=== PATIENT | male | born 1990 | race Caucasian/White ===

== ENCOUNTER 2017-02-11 15:54 | Inpatient (IN) | payer BC ==
[~2017-02-11] VITALS: Ht 175.3 cm; Wt 59.9 kg
[2017-02-11] MEDS ORDERED: IV NORMAL SALINE 1000ML BAG 1,000 ML IV ONE ×2 (16:15→20:30)
[2017-02-11 16:29] LABS: BASO # 0.1 x10^3/uL (0.0-0.2); BASO % 1 % (0-3); EOS % 1 % (0-3); HEMATOCRIT 43.2 % (39.0-53.0); HEMOGLOBIN 14.3 g/dL (13.0-17.5); LYMPH # 1.5 x10^3/uL (1.0-4.8); LYMPH % 22 % (24-48); MEAN CORPUSCULAR HEMOGLOBIN 28 pg (25-35); MEAN CORPUSCULAR HGB CONC 33 g/dL (31-37); MEAN CORPUSCULAR VOLUME 85 fL (79-100); MONO % 8 % (0-9); NEUT % 68 % (31-73); PLATELET COUNT 249 x10^3/uL (140-400); RED BLOOD COUNT 5.07 x10^6/uL (4.30-5.70); WHITE BLOOD COUNT 7.1 x10^3/uL (4.0-11.0)
[2017-02-11 16:32] LABS: BILIRUBIN,URINE SMALL (NEG); GLUCOSE,URINE NEGATIVE (NEG); NITRITE,URINE NEGATIVE (NEG); PROTEIN,URINE NEGATIVE (NEG-TRACE)
--- NOTE | 2017-02-11 16:33 | RAD ---
AP portable chest radiograph 02/11/2017 Clinical History: Unresponsive. Post intubation. An AP portable erect digital radiograph of the chest was obtained. No previous studies are available for comparison. An ET tube has been placed. The tip this tube overlies the trachea at the level of the clavicles. A NG tube has been placed. The tip of this tube is off this radiograph in the region of the body of the stomach. The cardiac and mediastinal silhouettes are within normal limits in size and configuration. No acute pulmonary infiltrate is seen. No pleural effusion or pneumothorax is noted. The osseous structures are grossly intact. Impression: 1. ET and NG tube position as outlined above. 2. No acute abnormality is seen.
[2017-02-11 16:42] LABS: BACTERIA,URINE FEW /HPF (0-FEW); RBC,URINE 0 /HPF (0-2); SQUAMOUS EPITHELIAL CELL,UR OCC /LPF
[2017-02-11 16:43] LABS: CALCIUM 8.4 mg/dL (8.5-10.1); CREATININE 1.1 mg/dL (0.7-1.3); GFR 81.6; POTASSIUM 3.6 mmol/L (3.5-5.1)
[2017-02-11 16:43] LABS: BARBITURATES NEG (NEG); BENZODIAZEPINES NEG (NEG); CANNABINOIDS POS (NEG); COCAINE NEG (NEG); METHADONE NEG (NEG); OPIATES NEG (NEG); PHENCYCLIDINE NEG (NEG)
[2017-02-11 16:52] LABS: ALBUMIN 4.3 g/dL (3.4-5.0); ALBUMIN/GLOBULIN RATIO 1.5 (1.0-1.7); TOTAL BILIRUBIN 0.4 mg/dL (0.2-1.0); TOTAL PROTEIN 7.2 g/dL (6.4-8.2)
[2017-02-11] MEDS ORDERED: PROPOFOL 10 MG/ML (50ML) VIAL. IV ONE (17:00)
[2017-02-11] MEDS ORDERED: PROPOFOL 50 ML IV ONE (17:01)
--- NOTE | 2017-02-11 17:20 | RAD ---
CT scan of the head without contrast 02/11/2017 Clinical history: Unresponsive. Technique: Unenhanced, contiguous, 5 mm axial sections were obtained through the head. One or more of the following individualized dose reduction techniques were utilized for this study: 1. Automated exposure control. 2. Adjustment of the mA and/or kV according to patient size. 3. Use of iterative reconstruction technique. Findings: The ventricles and sulci are within normal limits in size and configuration. No area of abnormal attenuation is involving the brain parenchyma. No extra-axial fluid collection is seen. No skull fracture is noted. A 9 mm mucous retention cyst is seen involving the right maxillary sinus. Moderate mucosal thickening is seen along the left maxillary sinus. Impression: No acute intracranial abnormality is seen. CT scan of the cervical spine without contrast 02/11/2017 Clinical history: Unresponsive. Possible neck injury. Technique: Unenhanced, contiguous, 0.625 mm axial sections were obtained through the cervical spine. 3 mm reconstructed sagittal, axial, and and coronal images were obtained. One or more of the following individualized dose reduction techniques were utilized for this study: 1. Automated exposure control. 2. Adjustment of the mA and/or kV according to patient size. 3. Use of iterative reconstruction technique. Findings: Sagittal and coronal reconstructed images demonstrate mild lateral curvature of the cervical spine convex to the right. There is slight straightening of the normal cervical lordosis. ET and NG tubes are noted in place. No fracture or subluxation of the cervical vertebrae is seen. No significant degenerative changes are noted. Impression: No fracture or subluxation of the cervical vertebra is seen.
[2017-02-11] MEDS ORDERED: fentaNYL PF VIAL 100 MCG/2 ML VIAL IV ONE (17:30)
[2017-02-11 17:31] LABS: PLT ESTIMATE ADEQUATE (ADEQUATE)
[2017-02-11] MEDS ORDERED: KETAMINE HCL 500 MG/10 ML VIAL. IV ONE ×2 (17:45→18:45)
[2017-02-11] MEDS ORDERED: MORPHINE SULFATE 4 MG/ML DISP.SYRIN. IV PRN (18:15)
[2017-02-11] MEDS ORDERED: ONDANSETRON PF 4 MG/2 ML VIAL. IV PRN (18:15)
[2017-02-11] MEDS ORDERED: ETOMIDATE 20 MG/10 ML VIAL. IV ONE (19:09)
[2017-02-11] MEDS ORDERED: ROCURONIUM 50 MG/5 ML VIAL. ONE (19:09)
--- NOTE | 2017-02-11 19:25 | PHYS DOC ---
Past Medical History Past Medical History: No Pertinent History Past Surgical History: No Surgical History Alcohol Use: None Drug Use: Marijuana Adult General Chief Complaint Chief Complaint: ALTERED MENTAL STATUS HPI HPI Patient is a 27 year old M who presents with unresponsive. Patient was found face down in the median of the road and a concern citizen called EMS. Patient came in unresponsive with a GCS of 3 not intubated. There is no overt signs of trauma. Vital signs stable for EMS. Pertinent exam findings: GCS of 3 Vertical nystagmus with 4 mm pupils bilaterally Heart was regular rate and rhythm without any murmurs Lungs were clear to auscultation bilaterally ED course: Patient was seen and evaluated upon arrival to emergency room, CBC, CMP, troponin, urine drug screen, CT scan of the head, chest x-ray were ordered After evaluating the patient in the recess bay the patient has a GCS of 3 therefore was intubated using 20 of etomidate and 70 of rocuronium with a size 8 -0 ET tube 1718: Patient is starting to wake up on the vent therefore bolus of propofol was provided 1736: A bolus of ketamine 140 mg was given to the patient who is now resting comfortably 1800: Discussed CC/HP/PMH with Dr. Huber and recommends admit [] Pertinent results: 1615: EKG shows normal sinus rhythm rate of [address] scan of the head and C-spine NAD Drug screen is positive for methamphetamines Chest x-ray NAD, ET tube and NG tube were in place MDM: After reviewing the chart, CC/HPI/PMH, physical exam, [lab results], [ radiological results], I do not believe the patient sustained an acute intracranial injury warranting emergent neurosurgical intervention. I believe the patient had a drug overdose that caused his unresponsiveness and will admit to the ICU for further evaluation and management. Review of Systems Review of Systems Able to obtain review of systems secondary to patient's clinical status Current Medications Current Medications Current Medications Medications (Trade) Dose Ordered Sig/[place] Start Time Stop Time Status Last Admin Dose Admin Fentanyl Citrate (Fentanyl 2ml Vial) 100 mcg 1X ONCE 02/11/17 17:30 02/11/17 17:31 DC 02/11/17 17:28 100 MCG Ketamine HCl 320 mg 1X ONCE 02/11/17 17:45 02/11/17 17:46 Cancel Propofol 50 ml @ As Directed STK-MED ONCE 02/11/17 17:01 6/12/17 17:02 DC Propofol (Diprivan) 500 mg 1X ONCE 02/11/17 17:00 02/11/17 17:01 DC 02/11/17 17:03 500 MG Sodium Chloride 1,000 ml @ 1,000 mls/hr 1X ONCE 02/11/17 16:15 02/11/17 17:14 DC 02/11/17 16:21 1,000 MLS/HR Allergies Allergies Allergies Coded Allergies Type Severity Reaction Last Updated Verified No Known Drug Allergies 01/07/16 No Physical Exam Physical Exam GEN.: Unresponsive HEENT: Head is normocephalic, atraumatic, vertical nystagmus with pupils 4 mm bilaterally NECK: Supple. LUNGS: CTAB. HEART: RRR, S1, S2 present. Peripheral pulses intact ABDOMEN: Soft, nontender. Positive bowel sounds. EXTREMITIES: Without any cyanosis. NEUROLOGIC: GCS=3 SKIN: No ulcerations Current Patient Data Vital Signs Vital Signs Date Time Temp Pulse Resp B/P (MAP) Pulse Ox O2 Delivery O2 Flow Rate FiO2 02/11/17 17:51 62 147/99 (115) 100 Ventilator 02/11/17 15:54 100.1 14 100.1 Lab Values Laboratory Tests Test 02/11/17 16:10 02/11/17 16:20 White Blood Count 7.1 x10^3/uL (4.0-11.0) Red Blood Count 5.07 x10^6/uL (4.30-5.70) Hemoglobin 14.3 g/dL (13.0-17.5) Hematocrit 43.2 % (39.0-53.0) Mean Corpuscular Volume 85 fL (79-100) Mean Corpuscular Hemoglobin 28 pg (25-35) Mean Corpuscular Hemoglobin Concent 33 g/dL (31-37) Red Cell Distribution Width 14.0 % (11.5-14.5) Platelet Count 249 x10^3/uL (140-400) Neutrophils (%) (Auto) 68 % (31-73) Lymphocytes (%) (Auto) 22 % (24-48) L Monocytes (%) (Auto) 8 % (0-9) Eosinophils (%) (Auto) 1 % (0-3) Basophils (%) (Auto) 1 % (0-3) Neutrophils # (Auto) 4.8 x10^3uL (1.8-7.7) Lymphocytes # (Auto) 1.5 x10^3/uL (1.0-4.8) Monocytes # (Auto) 0.6 x10^3/uL (0.0-1.1) Eosinophils # (Auto) 0.1 x10^3/uL (0.0-0.7) Basophils # (Auto) 0.1 x10^3/uL (0.0-0.2) Platelet Estimate Adequate (ADEQUATE) Platelet Clumps, EDTA Present Large Platelets Few Sodium Level 145 mmol/L (136-145) Potassium Level 3.6 mmol/L (3.5-5.1) Chloride Level 107 mmol/L (98-107) Carbon Dioxide Level 31 mmol/L (21-32) Anion Gap 7 (6-14) Blood Urea Nitrogen 8 mg/dL (8-26) Creatinine 1.1 mg/dL (0.7-1.3) Estimated GFR (Cockcroft-Gault) 81.6 BUN/Creatinine Ratio 7 (6-20) Glucose Level 109 mg/dL (70-99) H Lactic Acid Level 0.9 mmol/L (0.4-2.0) Calcium Level 8.4 mg/dL (8.5-10.1) L Total Bilirubin 0.4 mg/dL (0.2-1.0) Aspartate Amino Transferase (AST) 19 U/L (15-37) Alanine Aminotransferase (ALT) 18 U/L (16-63) Alkaline Phosphatase 42 U/L (46-116) L Troponin I Quantitative < 0.017 ng/mL (0.000-0.055) Total Protein 7.2 g/dL (6.4-8.2) Albumin 4.3 g/dL (3.4-5.0) Albumin/Globulin Ratio 1.5 (1.0-1.7) Ethyl Alcohol Level < 10 mg/dL (0-10) Urine Collection Type U cath Urine Color Elizabeth Urine Clarity Clear Urine pH 6.0 Urine Specific [place] >=1.030 Urine Protein Negative mg/dL (NEG-TRACE) Urine Glucose (UA) Negative mg/dL (NEG) Urine Ketones (Stick) Trace mg/dL (NEG) Urine Blood Negative (NEG) Urine Nitrite Negative (NEG) Urine Bilirubin Small (NEG) Urine Urobilinogen Dipstick 1.0 mg/dL (0.2 mg/dL) Urine Leukocyte Esterase Trace (NEG) Urine RBC 0 /HPF (0-2) Urine WBC 1-4 /HPF (0-4) Urine Squamous Epithelial Cells Occ /LPF Urine Amorphous Sediment Present /HPF Urine Bacteria Few /HPF (0-FEW) Urine Mucus Mod /LPF Urine Opiates Screen Neg (NEG) Urine Methadone Screen Neg (NEG) Urine Barbiturates Neg (NEG) Urine Phencyclidine Screen Neg (NEG) Urine Amphetamine/Methamphetamine Pos (NEG) Urine Benzodiazepines Screen Neg (NEG) Urine Cocaine Screen Neg (NEG) Urine Cannabinoids Screen Pos (NEG) Urine Ethyl Alcohol Neg (NEG) Laboratory Tests 02/11/17 16:10 Laboratory Tests 02/11/17 16:10 EKG EKG EKG shows normal sinus rhythm rate 79 no STEMI [] Radiology/Procedures Radiology/Procedures Chest x-ray NAD CT scan of the head and C-spine NAD [] Course & Med Decision Making Course & Med Decision Making Pertinent Labs and Imaging studies reviewed. (See chart for details) Critical care time was 35 minutes exclusive of procedures. [] Dragon Disclaimer Dragon Disclaimer This electronic medical record was generated, in whole or in part, using a voice recognition dictation system. Departure Departure Impression: Primary Impression: Unresponsiveness Additional Impression: Methamphetamine abuse Disposition: 09 ADMITTED INPATIENT Admitting Physician: Marisel Huber Condition: STABLE Referrals: NO PCP (PCP) Problem Qualifiers BASSAM MCINTOSH DO Feb 11, 2017 19:25
[2017-02-11] MEDS ORDERED: PROPOFOL 100 ML IV ONE ×2 (19:42→23:45)
[2017-02-11 19:45] VITALS: BP 100/60
[2017-02-11 20:30] VITALS: BP 134/60
[2017-02-11] MEDS ORDERED: IV NORMAL SALINE 1000ML BAG 1,000 ML IV SCH (20:30)
[2017-02-11 20:52] LABS: HCO3 ABG 24 mmol/L (21-28); PCO2 ABG 36 mmHg (35-46); PH ABG 7.44 (7.35-7.45); PO2 ABG 374 mmHg (85-108); SAT O2 ABG 99 % (92-99)
[2017-02-11 20:55] LABS: FIO2 ABG 60
--- NOTE | 2017-02-11 20:56 | ACF ---
Admission Forms Criteria DRUG INGESTION OR OVERDOSE Clinical Indications for Admission to Inpatient Care ( Place 'X' for any and all applicable criteria): Admission is indicated for severe toxicity as indicated by ANY ONE of the following(1)(2)(3)(4)(5)(6): [X ]I. Inpatient admission required rather than observation care (Also use Drug Ingestion or Overdose: Observation Care guideline as appropriate) because of ANY ONE of the following: [X ]a) Altered mental status that is severe or persistent [ ]b) Clinical finding (eg, metabolic acidosis, hypoglycemia, bradycardia) that is severe or persistent [ ]c) Toxic drug level that is persistent [ ]d) Psychiatric risk status not acceptable for outpatient management [ ]e) Continuous intravenous infusion of anticoagulation, platelet inhibitor, vasoactive, or antiarrhythmic medication (15)(16) [ ]f) Other condition, treatment or monitoring requiring inpatient admission [ ]II. Respiratory abnormalities [ ]III. Specific finding indicating severe and likely prolonged drug toxicity [ ]IV. Hemodynamic instability [ ]V. Dangerous arrhythmia [ ]. Hypertension requiring inpatient treatment Extended stay beyond goal length of stay may be needed for (4): [ ]a) Neurologic or respiratory compromise [ ]b) Hemodynamic instability [ ]c) Persistent toxic drug levels (25) [ ]d) Severe drug toxicities or complications [ ]e) Ongoing antidote treatment (eg, acetaminophen overdose)(5) [ ]f) Older patients(65 years or older) The original [employer] content created by [employer] has been revised. The portions of the content which have been revised are identified through the use of italic text or in bold, and [facility] has neither reviewed nor approved the modified material. All other unmodified content is copyright [email or web address]. Please see references footnoted in the original [email or web address] edition 2016 Admission Criteria Met?: Yes GEORGE MAGAÑA Feb 11, 2017 20:56
[2017-02-11 21:00] VITALS: BP 149/85
[2017-02-11] MEDS: IV NORMAL SALINE 1000ML BAG 1,000 ML IV SCH (21:28)
[2017-02-11] MEDS: MIDAZOLAM PREMIX 100 ML IV PRN (21:33)
[2017-02-11 22:00] VITALS: BP 135/71
--- NOTE | 2017-02-11 22:06 | PDOC1 ---
History and Physical Date of Admission Date of Admission DATE: 02/11/17 TIME: 22:02 Identification/Chief Complaint Chief Complaint found down Problems: Source Source: Chart review History of Present Illness History of Present Illness Mr. Farah, is a 27 year old M was found down at the side of a road. EMS called by passerby, GCS 3 intially, poorly responsive, did not protect airway well in ER and intubated pt has since woken up some, and req. sedation, ketamine given in ER. BP relatively low range, Past Medical History Past Medical History unk Cardiovascular: Other Family History Family History: Family History Unknown Social History Drugs: Crystal meth, Other Current Problem List Problem List Problems Medical Problems: (1) Methamphetamine abuse Status: Acute (2) Unresponsiveness Status: Acute Problems: Current Medications Current Medications Current Medications Sodium Chloride 1,000 ml @ 1,000 mls/hr 1X ONCE IV Last administered on 16:21; Start 02/11/17 at 16:15; Stop 02/11/17 at 17:14; Status DC Propofol (Diprivan) 500 mg 1X ONCE IV Last administered on 02/11/17 17:03; Start 02/11/17 at 17:00; Stop 02/11/17 at 17:01; Status DC Propofol 50 ml @ As Directed STK-MED ONCE IV ; Start 02/11/17 at 17:01; Stop 08/18 at 17:02; Status DC Fentanyl Citrate (Fentanyl 2ml Vial) 100 mcg 1X ONCE IV Last administered on 17:28; Start 02/11/17 at 17:30; Stop 02/11/17 at 17:31; Status DC Ketamine HCl 320 mg 1X ONCE IV ; Start 02/11/17 at 17:45; Stop 02/11/17 at 17: 46; Status Cancel Ondansetron HCl (Zofran) 4 mg PRN Q8HRS PRN IV NAUSEA/VOMITING; Start 02/11/17 at 18:15; Stop 02/12/17 at 18:14 Morphine Sulfate 4 mg PRN Q2HR PRN IV PAIN; Start 02/11/17 at 18:15; Stop 02/12 at 18:14 Ketamine HCl 140 mg 1X ONCE IV Last administered on 02/11/17 17:33; Start 08/18 at 18:45; Stop 02/11/17 at 18:46; Status DC Rocuronium [place] (Zemuron) 50 mg STK-MED ONCE .ROUTE ; Start 02/11/17 at 19:09 ; Stop 02/11/17 at 19:10; Status DC Etomidate (Amidate) 20 mg STK-MED ONCE IV ; Start 02/11/17 at 19:09; Stop at 19:10; Status DC Propofol 100 ml @ As Directed STK-MED ONCE IV ; Start 02/11/17 at 19:42; Stop 02/11/17 at 19:43; Status DC Lorazepam (Ativan) 2 mg PRN Q4HRS PRN IV ANXIETY / AGITATION; Start 02/11/17 at 20:15 Sodium Chloride 1,000 ml @ 150 mls/hr Q6H40M IV Last administered on 21:28; Start 02/11/17 at 20:30 Sodium Chloride 1,000 ml @ 1,000 mls/hr 1X ONCE IV Last administered on 20:24; Start 02/11/17 at 20:30; Stop 02/11/17 at 21:29; Status DC Sodium Chloride 1,000 ml @ 150 mls/hr Q6H40M IV ; Start 02/11/17 at 20:30; Status UNV Midazolam HCl 100 ml @ 0 mls/hr CONT PRN IV SEE I/O RECORD Last administered on 02/11/17 21:33; Start 02/11/17 at 20:30 Fentanyl Citrate 30 ml @ 0 mls/hr CONT PRN IV PROTOCOL; Start 02/11/17 at 20:30 Allergies Allergies: Coded Allergies: No Known Drug Allergies (Unverified , 01/07/16) ROS Review of System unable Physical Exam General: Other HEENT: Atraumatic, EOMI Lungs: Clear to auscultation, Normal air movement Abdomen: Normal bowel sounds, Soft Rectal Exam: not examined Extremities: No clubbing, No cyanosis Skin: No breakdown, Other Neuro: Other Vitals Vitals Vital Signs Date Time Temp Pulse Resp B/P (MAP) Pulse Ox O2 Delivery O2 Flow Rate FiO2 02/11/17 20:56 100 Ventilator 02/11/17 18:33 67 146/93 (110) 02/11/17 15:54 100.1 14 100.1 Labs Labs Laboratory Tests Test 02/11/17 16:10 02/11/17 16:20 02/11/17 20:51 White Blood Count 7.1 x10^3/uL (4.0-11.0) Red Blood Count 5.07 x10^6/uL (4.30-5.70) Hemoglobin 14.3 g/dL (13.0-17.5) Hematocrit 43.2 % (39.0-53.0) Mean Corpuscular Volume 85 fL (79-100) Mean Corpuscular Hemoglobin 28 pg (25-35) Mean Corpuscular Hemoglobin Concent 33 g/dL (31-37) Red Cell Distribution Width 14.0 % (11.5-14.5) Platelet Count 249 x10^3/uL (140-400) Neutrophils (%) (Auto) 68 % (31-73) Lymphocytes (%) (Auto) 22 % (24-48) Monocytes (%) (Auto) 8 % (0-9) Eosinophils (%) (Auto) 1 % (0-3) Basophils (%) (Auto) 1 % (0-3) Neutrophils # (Auto) 4.8 x10^3uL (1.8-7.7) Lymphocytes # (Auto) 1.5 x10^3/uL (1.0-4.8) Monocytes # (Auto) 0.6 x10^3/uL (0.0-1.1) Eosinophils # (Auto) 0.1 x10^3/uL (0.0-0.7) Basophils # (Auto) 0.1 x10^3/uL (0.0-0.2) Platelet Estimate Adequate (ADEQUATE) Platelet Clumps, EDTA Present Large Platelets Few Sodium Level 145 mmol/L (136-145) Potassium Level 3.6 mmol/L (3.5-5.1) Chloride Level 107 mmol/L (98-107) Carbon Dioxide Level 31 mmol/L (21-32) Anion Gap 7 (6-14) Blood Urea Nitrogen 8 mg/dL (8-26) Creatinine 1.1 mg/dL (0.7-1.3) Estimated GFR (Cockcroft-Gault) 81.6 BUN/Creatinine Ratio 7 (6-20) Glucose Level 109 mg/dL (70-99) Lactic Acid Level 0.9 mmol/L (0.4-2.0) Calcium Level 8.4 mg/dL (8.5-10.1) Total Bilirubin 0.4 mg/dL (0.2-1.0) Aspartate Amino Transf (AST/SGOT) 19 U/L (15-37) Alanine Aminotransferase (ALT/SGPT) 18 U/L (16-63) Alkaline Phosphatase 42 U/L (46-116) Troponin I Quantitative < 0.017 ng/mL (0.000-0.055) Total Protein 7.2 g/dL (6.4-8.2) Albumin 4.3 g/dL (3.4-5.0) Albumin/Globulin Ratio 1.5 (1.0-1.7) Ethyl Alcohol Level < 10 mg/dL (0-10) Urine Collection Type U cath Urine Color Elizabeth Urine Clarity Clear Urine pH 6.0 Urine Specific [place] >=1.030 Urine Protein Negative mg/dL (NEG-TRACE) Urine Glucose (UA) Negative mg/dL (NEG) Urine Ketones (Stick) Trace mg/dL (NEG) Urine Blood Negative (NEG) Urine Nitrite Negative (NEG) Urine Bilirubin Small (NEG) Urine Urobilinogen Dipstick 1.0 mg/dL (0.2 mg/dL) Urine Leukocyte Esterase Trace (NEG) Urine RBC 0 /HPF (0-2) Urine WBC 1-4 /HPF (0-4) Urine Squamous Epithelial Cells Occ /LPF Urine Amorphous Sediment Present /HPF Urine Bacteria Few /HPF (0-FEW) Urine Mucus Mod /LPF Urine Opiates Screen Neg (NEG) Urine Methadone Screen Neg (NEG) Urine Barbiturates Neg (NEG) Urine Phencyclidine Screen Neg (NEG) Urine Amphetamine/Methamphetamine Pos (NEG) Urine Benzodiazepines Screen Neg (NEG) Urine Cocaine Screen Neg (NEG) Urine Cannabinoids Screen Pos (NEG) Urine Ethyl Alcohol Neg (NEG) O2 Saturation 99 % (92-99) Arterial Blood pH 7.44 (7.35-7.45) Arterial Blood pCO2 at Patient Temp 36 mmHg (35-46) Arterial Blood pO2 at Patient Temp 374 mmHg (85-108) Arterial Blood HCO3 24 mmol/L (21-28) Arterial Blood Base Excess 0 mmol/L (-3-3) FiO2 60 Laboratory Tests Test 02/11/17 16:10 02/11/17 16:20 02/11/17 20:51 White Blood Count 7.1 x10^3/uL (4.0-11.0) Red Blood Count 5.07 x10^6/uL (4.30-5.70) Hemoglobin 14.3 g/dL (13.0-17.5) Hematocrit 43.2 % (39.0-53.0) Mean Corpuscular Volume 85 fL (79-100) Mean Corpuscular Hemoglobin 28 pg (25-35) Mean Corpuscular Hemoglobin Concent 33 g/dL (31-37) Red Cell Distribution Width 14.0 % (11.5-14.5) Platelet Count 249 x10^3/uL (140-400) Neutrophils (%) (Auto) 68 % (31-73) Lymphocytes (%) (Auto) 22 % (24-48) Monocytes (%) (Auto) 8 % (0-9) Eosinophils (%) (Auto) 1 % (0-3) Basophils (%) (Auto) 1 % (0-3) Neutrophils # (Auto) 4.8 x10^3uL (1.8-7.7) Lymphocytes # (Auto) 1.5 x10^3/uL (1.0-4.8) Monocytes # (Auto) 0.6 x10^3/uL (0.0-1.1) Eosinophils # (Auto) 0.1 x10^3/uL (0.0-0.7) Basophils # (Auto) 0.1 x10^3/uL (0.0-0.2) Platelet Estimate Adequate (ADEQUATE) Platelet Clumps, EDTA Present Large Platelets Few Sodium Level 145 mmol/L (136-145) Potassium Level 3.6 mmol/L (3.5-5.1) Chloride Level 107 mmol/L (98-107) Carbon Dioxide Level 31 mmol/L (21-32) Anion Gap 7 (6-14) Blood Urea Nitrogen 8 mg/dL (8-26) Creatinine 1.1 mg/dL (0.7-1.3) Estimated GFR (Cockcroft-Gault) 81.6 BUN/Creatinine Ratio 7 (6-20) Glucose Level 109 mg/dL (70-99) Lactic Acid Level 0.9 mmol/L (0.4-2.0) Calcium Level 8.4 mg/dL (8.5-10.1) Total Bilirubin 0.4 mg/dL (0.2-1.0) Aspartate Amino Transf (AST/SGOT) 19 U/L (15-37) Alanine Aminotransferase (ALT/SGPT) 18 U/L (16-63) Alkaline Phosphatase 42 U/L (46-116) Troponin I Quantitative < 0.017 ng/mL (0.000-0.055) Total Protein 7.2 g/dL (6.4-8.2) Albumin 4.3 g/dL (3.4-5.0) Albumin/Globulin Ratio 1.5 (1.0-1.7) Ethyl Alcohol Level < 10 mg/dL (0-10) Urine Collection Type U cath Urine Color Elizabeth Urine Clarity Clear Urine pH 6.0 Urine Specific [place] >=1.030 Urine Protein Negative mg/dL (NEG-TRACE) Urine Glucose (UA) Negative mg/dL (NEG) Urine Ketones (Stick) Trace mg/dL (NEG) Urine Blood Negative (NEG) Urine Nitrite Negative (NEG) Urine Bilirubin Small (NEG) Urine Urobilinogen Dipstick 1.0 mg/dL (0.2 mg/dL) Urine Leukocyte Esterase Trace (NEG) Urine RBC 0 /HPF (0-2) Urine WBC 1-4 /HPF (0-4) Urine Squamous Epithelial Cells Occ /LPF Urine Amorphous Sediment Present /HPF Urine Bacteria Few /HPF (0-FEW) Urine Mucus Mod /LPF Urine Opiates Screen Neg (NEG) Urine Methadone Screen Neg (NEG) Urine Barbiturates Neg (NEG) Urine Phencyclidine Screen Neg (NEG) Urine Amphetamine/Methamphetamine Pos (NEG) Urine Benzodiazepines Screen Neg (NEG) Urine Cocaine Screen Neg (NEG) Urine Cannabinoids Screen Pos (NEG) Urine Ethyl Alcohol Neg (NEG) O2 Saturation 99 % (92-99) Arterial Blood pH 7.44 (7.35-7.45) Arterial Blood pCO2 at Patient Temp 36 mmHg (35-46) Arterial Blood pO2 at Patient Temp 374 mmHg (85-108) Arterial Blood HCO3 24 mmol/L (21-28) Arterial Blood Base Excess 0 mmol/L (-3-3) FiO2 60 VTE Prophylaxis Ordered VTE Prophylaxis Devices: No VTE Pharmacological Prophylaxi: Yes Assessment/Plan Assessment/Plan Acute toxic encephalopathy drug abuse, extent unspecified, poss K2 use from Hx intubated, now sedated, wean and extubate in AM ALEXANDRIA MARMOLEJO MD Feb 11, 2017 22:06
[2017-02-11 23:00] VITALS: BP 138/69
[2017-02-11] MEDS: ENOXAPARIN 40 MG/0.4 ML SYRINGE. SQ SCH (23:29)
[2017-02-12] VITALS (17 sets, daily range): BP systolic 105–147; BP diastolic 54–82
[2017-02-12] MEDS: IV NORMAL SALINE 1000ML BAG 1,000 ML IV SCH ×4 (03:37→23:10)
[2017-02-12] MEDS: MIDAZOLAM PREMIX 100 ML IV PRN (04:01)
--- NOTE | 2017-02-12 06:35 | EKG ---
[facility] [address] [place] [address] Test Date: 2017-02-11 Test Time: 16:12:56 Pat Name: SILVINO TINAJERO Department: Room: 105 1 Gender: M Supply Technician: JASMEET : [id number] Requested By: BASSAM MCINTOSH Order Number: [id number] Reading MD: Aram Howard Measurements Intervals [place] Rate: 79 P: 63 FL: 118 QRS: 81 QRSD: 92 T: 82 QT: 344 QTc: 395 Interpretive Statements SINUS RHYTHM Electronically Signed On 02-12-2017 9:42:19 CDT by Aram Howard
[2017-02-12 06:42] LABS: BASO # 0.1 x10^3/uL (0.0-0.2); BASO % 1 % (0-3); EOS % 0 % (0-3); HEMATOCRIT 39.7 % (39.0-53.0); HEMOGLOBIN 13.1 g/dL (13.0-17.5); LYMPH # 1.2 x10^3/uL (1.0-4.8); LYMPH % 9 % (24-48); MEAN CORPUSCULAR HEMOGLOBIN 28 pg (25-35); MEAN CORPUSCULAR HGB CONC 33 g/dL (31-37); MEAN CORPUSCULAR VOLUME 85 fL (79-100); MONO % 5 % (0-9); NEUT % 85 % (31-73); PLATELET COUNT 212 x10^3/uL (140-400); RED BLOOD COUNT 4.65 x10^6/uL (4.30-5.70); RED CELL DISTRIBUTION WIDTH 14.3 % (11.5-14.5); WHITE BLOOD COUNT 12.4 x10^3/uL (4.0-11.0)
[2017-02-12 07:00] LABS: CALCIUM 7.4 mg/dL (8.5-10.1); CREATININE 0.7 mg/dL (0.7-1.3); GFR 137.4; POTASSIUM 3.1 mmol/L (3.5-5.1)
[2017-02-12 07:43] LABS: HCO3 ABG 23 mmol/L (21-28); PCO2 ABG 36 mmHg (35-46); PH ABG 7.42 (7.35-7.45); PO2 ABG 105 mmHg (85-108); SAT O2 ABG 98 % (92-99)
[2017-02-12 07:48] LABS: FIO2 ABG 30
--- NOTE | 2017-02-12 09:09 | PDOC ---
PROGRESS NOTES Chief Complaint Chief Complaint cc: intoxication A/P 1. Acute respiratory failure : On Mechanical ventilation, Planning for extubation today ,off sedation 2. Acute toxic encephalopathy, possible K2 3. ? Suicidal ideations: consult PAT team, possible inpatient psychiatry placement. labs reviewed, d/w family, History of Present Illness History of Present Illness off sedation. Vitals Vitals Vital Signs Date Time Temp Pulse Resp B/P (MAP) Pulse Ox O2 Delivery O2 Flow Rate FiO2 02/12/17 09:02 85 15 147/79 (101) 99 Ventilator 02/12/17 07:15 98.4 98.4 Physical Exam General: Alert, Other (on ventilatior, ) Heart: Normal S1, Normal S2 Lungs: Clear Abdomen: Normal bowel sounds, Soft Extremities: No clubbing, No cyanosis Skin: No breakdown, Other Labs LABS Laboratory Tests Test 02/11/17 16:10 02/11/17 16:20 02/11/17 20:51 02/12/17 05:45 White Blood Count 7.1 x10^3/uL (4.0-11.0) 12.4 x10^3/uL (4.0-11.0) Red Blood Count 5.07 x10^6/uL (4.30-5.70) 4.65 x10^6/uL (4.30-5.70) Hemoglobin 14.3 g/dL (13.0-17.5) 13.1 g/dL (13.0-17.5) Hematocrit 43.2 % (39.0-53.0) 39.7 % (39.0-53.0) Mean Corpuscular Volume 85 fL (79-100) 85 fL (79-100) Mean Corpuscular Hemoglobin 28 pg (25-35) 28 pg (25-35) Mean Corpuscular Hemoglobin Concent 33 g/dL (31-37) 33 g/dL (31-37) Red Cell Distribution Width 14.0 % (11.5-14.5) 14.3 % (11.5-14.5) Platelet Count 249 x10^3/uL (140-400) 212 x10^3/uL (140-400) Neutrophils (%) (Auto) 68 % (31-73) 85 % (31-73) Lymphocytes (%) (Auto) 22 % (24-48) 9 % (24-48) Monocytes (%) (Auto) 8 % (0-9) 5 % (0-9) Eosinophils (%) (Auto) 1 % (0-3) 0 % (0-3) Basophils (%) (Auto) 1 % (0-3) 1 % (0-3) Neutrophils # (Auto) 4.8 x10^3uL (1.8-7.7) 10.5 x10^3uL (1.8-7.7) Lymphocytes # (Auto) 1.5 x10^3/uL (1.0-4.8) 1.2 x10^3/uL (1.0-4.8) Monocytes # (Auto) 0.6 x10^3/uL (0.0-1.1) 0.7 x10^3/uL (0.0-1.1) Eosinophils # (Auto) 0.1 x10^3/uL (0.0-0.7) 0.1 x10^3/uL (0.0-0.7) Basophils # (Auto) 0.1 x10^3/uL (0.0-0.2) 0.1 x10^3/uL (0.0-0.2) Platelet Estimate Adequate (ADEQUATE) Platelet Clumps, EDTA Present Large Platelets Few Sodium Level 145 mmol/L (136-145) 144 mmol/L (136-145) Potassium Level 3.6 mmol/L (3.5-5.1) 3.1 mmol/L (3.5-5.1) Chloride Level 107 mmol/L (98-107) 112 mmol/L (98-107) Carbon Dioxide Level 31 mmol/L (21-32) 24 mmol/L (21-32) Anion Gap 7 (6-14) 8 (6-14) Blood Urea Nitrogen 8 mg/dL (8-26) 8 mg/dL (8-26) Creatinine 1.1 mg/dL (0.7-1.3) 0.7 mg/dL (0.7-1.3) Estimated GFR (Cockcroft-Gault) 81.6 137.4 BUN/Creatinine Ratio 7 (6-20) Glucose Level 109 mg/dL (70-99) 91 mg/dL (70-99) Lactic Acid Level 0.9 mmol/L (0.4-2.0) Calcium Level 8.4 mg/dL (8.5-10.1) 7.4 mg/dL (8.5-10.1) Total Bilirubin 0.4 mg/dL (0.2-1.0) Aspartate Amino Transf (AST/SGOT) 19 U/L (15-37) Alanine Aminotransferase (ALT/SGPT) 18 U/L (16-63) Alkaline Phosphatase 42 U/L (46-116) Troponin I Quantitative < 0.017 ng/mL (0.000-0.055) Total Protein 7.2 g/dL (6.4-8.2) Albumin 4.3 g/dL (3.4-5.0) Albumin/Globulin Ratio 1.5 (1.0-1.7) Ethyl Alcohol Level < 10 mg/dL (0-10) Urine Collection Type U cath Urine Color Elizabeth Urine Clarity Clear Urine pH 6.0 Urine Specific [place] >=1.030 Urine Protein Negative mg/dL (NEG-TRACE) Urine Glucose (UA) Negative mg/dL (NEG) Urine Ketones (Stick) Trace mg/dL (NEG) Urine Blood Negative (NEG) Urine Nitrite Negative (NEG) Urine Bilirubin Small (NEG) Urine Urobilinogen Dipstick 1.0 mg/dL (0.2 mg/dL) Urine Leukocyte Esterase Trace (NEG) Urine RBC 0 /HPF (0-2) Urine WBC 1-4 /HPF (0-4) Urine Squamous Epithelial Cells Occ /LPF Urine Amorphous Sediment Present /HPF Urine Bacteria Few /HPF (0-FEW) Urine Mucus Mod /LPF Urine Opiates Screen Neg (NEG) Urine Methadone Screen Neg (NEG) Urine Barbiturates Neg (NEG) Urine Phencyclidine Screen Neg (NEG) Urine Amphetamine/Methamphetamine Pos (NEG) Urine Benzodiazepines Screen Neg (NEG) Urine Cocaine Screen Neg (NEG) Urine Cannabinoids Screen Pos (NEG) Urine Ethyl Alcohol Neg (NEG) O2 Saturation 99 % (92-99) Arterial Blood pH 7.44 (7.35-7.45) Arterial Blood pCO2 at Patient Temp 36 mmHg (35-46) Arterial Blood pO2 at Patient Temp 374 mmHg (85-108) Arterial Blood HCO3 24 mmol/L (21-28) Arterial Blood Base Excess 0 mmol/L (-3-3) FiO2 60 Test 02/12/17 07:40 O2 Saturation 98 % (92-99) Arterial Blood pH 7.42 (7.35-7.45) Arterial Blood pCO2 at Patient Temp 36 mmHg (35-46) Arterial Blood pO2 at Patient Temp 105 mmHg (85-108) Arterial Blood HCO3 23 mmol/L (21-28) Arterial Blood Base Excess -1 mmol/L (-3-3) FiO2 30 Assessment and Plan Assessmemt and Plan Problems Medical Problems: (1) Methamphetamine abuse Status: Acute (2) Unresponsiveness Status: Acute Problems: Comment Review of Relevant I have reviewed the following items gonzález (where applicable) has been applied. Labs Laboratory Tests Test 02/11/17 16:10 02/11/17 16:20 02/11/17 20:51 02/12/17 05:45 White Blood Count 7.1 x10^3/uL (4.0-11.0) 12.4 x10^3/uL (4.0-11.0) Red Blood Count 5.07 x10^6/uL (4.30-5.70) 4.65 x10^6/uL (4.30-5.70) Hemoglobin 14.3 g/dL (13.0-17.5) 13.1 g/dL (13.0-17.5) Hematocrit 43.2 % (39.0-53.0) 39.7 % (39.0-53.0) Mean Corpuscular Volume 85 fL (79-100) 85 fL (79-100) Mean Corpuscular Hemoglobin 28 pg (25-35) 28 pg (25-35) Mean Corpuscular Hemoglobin Concent 33 g/dL (31-37) 33 g/dL (31-37) Red Cell Distribution Width 14.0 % (11.5-14.5) 14.3 % (11.5-14.5) Platelet Count 249 x10^3/uL (140-400) 212 x10^3/uL (140-400) Neutrophils (%) (Auto) 68 % (31-73) 85 % (31-73) Lymphocytes (%) (Auto) 22 % (24-48) 9 % (24-48) Monocytes (%) (Auto) 8 % (0-9) 5 % (0-9) Eosinophils (%) (Auto) 1 % (0-3) 0 % (0-3) Basophils (%) (Auto) 1 % (0-3) 1 % (0-3) Neutrophils # (Auto) 4.8 x10^3uL (1.8-7.7) 10.5 x10^3uL (1.8-7.7) Lymphocytes # (Auto) 1.5 x10^3/uL (1.0-4.8) 1.2 x10^3/uL (1.0-4.8) Monocytes # (Auto) 0.6 x10^3/uL (0.0-1.1) 0.7 x10^3/uL (0.0-1.1) Eosinophils # (Auto) 0.1 x10^3/uL (0.0-0.7) 0.1 x10^3/uL (0.0-0.7) Basophils # (Auto) 0.1 x10^3/uL (0.0-0.2) 0.1 x10^3/uL (0.0-0.2) Platelet Estimate Adequate (ADEQUATE) Platelet Clumps, EDTA Present Large Platelets Few Sodium Level 145 mmol/L (136-145) 144 mmol/L (136-145) Potassium Level 3.6 mmol/L (3.5-5.1) 3.1 mmol/L (3.5-5.1) Chloride Level 107 mmol/L (98-107) 112 mmol/L (98-107) Carbon Dioxide Level 31 mmol/L (21-32) 24 mmol/L (21-32) Anion Gap 7 (6-14) 8 (6-14) Blood Urea Nitrogen 8 mg/dL (8-26) 8 mg/dL (8-26) Creatinine 1.1 mg/dL (0.7-1.3) 0.7 mg/dL (0.7-1.3) Estimated GFR (Cockcroft-Gault) 81.6 137.4 BUN/Creatinine Ratio 7 (6-20) Glucose Level 109 mg/dL (70-99) 91 mg/dL (70-99) Lactic Acid Level 0.9 mmol/L (0.4-2.0) Calcium Level 8.4 mg/dL (8.5-10.1) 7.4 mg/dL (8.5-10.1) Total Bilirubin 0.4 mg/dL (0.2-1.0) Aspartate Amino Transf (AST/SGOT) 19 U/L (15-37) Alanine Aminotransferase (ALT/SGPT) 18 U/L (16-63) Alkaline Phosphatase 42 U/L (46-116) Troponin I Quantitative < 0.017 ng/mL (0.000-0.055) Total Protein 7.2 g/dL (6.4-8.2) Albumin 4.3 g/dL (3.4-5.0) Albumin/Globulin Ratio 1.5 (1.0-1.7) Ethyl Alcohol Level < 10 mg/dL (0-10) Urine Collection Type U cath Urine Color Elizabeth Urine Clarity Clear Urine pH 6.0 Urine Specific [place] >=1.030 Urine Protein Negative mg/dL (NEG-TRACE) Urine Glucose (UA) Negative mg/dL (NEG) Urine Ketones (Stick) Trace mg/dL (NEG) Urine Blood Negative (NEG) Urine Nitrite Negative (NEG) Urine Bilirubin Small (NEG) Urine Urobilinogen Dipstick 1.0 mg/dL (0.2 mg/dL) Urine Leukocyte Esterase Trace (NEG) Urine RBC 0 /HPF (0-2) Urine WBC 1-4 /HPF (0-4) Urine Squamous Epithelial Cells Occ /LPF Urine Amorphous Sediment Present /HPF Urine Bacteria Few /HPF (0-FEW) Urine Mucus Mod /LPF Urine Opiates Screen Neg (NEG) Urine Methadone Screen Neg (NEG) Urine Barbiturates Neg (NEG) Urine Phencyclidine Screen Neg (NEG) Urine Amphetamine/Methamphetamine Pos (NEG) Urine Benzodiazepines Screen Neg (NEG) Urine Cocaine Screen Neg (NEG) Urine Cannabinoids Screen Pos (NEG) Urine Ethyl Alcohol Neg (NEG) O2 Saturation 99 % (92-99) Arterial Blood pH 7.44 (7.35-7.45) Arterial Blood pCO2 at Patient Temp 36 mmHg (35-46) Arterial Blood pO2 at Patient Temp 374 mmHg (85-108) Arterial Blood HCO3 24 mmol/L (21-28) Arterial Blood Base Excess 0 mmol/L (-3-3) FiO2 60 Test 02/12/17 07:40 O2 Saturation 98 % (92-99) Arterial Blood pH 7.42 (7.35-7.45) Arterial Blood pCO2 at Patient Temp 36 mmHg (35-46) Arterial Blood pO2 at Patient Temp 105 mmHg (85-108) Arterial Blood HCO3 23 mmol/L (21-28) Arterial Blood Base Excess -1 mmol/L (-3-3) FiO2 30 Laboratory Tests Test 02/11/17 16:10 02/11/17 16:20 02/11/17 20:51 02/12/17 05:45 White Blood Count 7.1 x10^3/uL (4.0-11.0) 12.4 x10^3/uL (4.0-11.0) Red Blood Count 5.07 x10^6/uL (4.30-5.70) 4.65 x10^6/uL (4.30-5.70) Hemoglobin 14.3 g/dL (13.0-17.5) 13.1 g/dL (13.0-17.5) Hematocrit 43.2 % (39.0-53.0) 39.7 % (39.0-53.0) Mean Corpuscular Volume 85 fL (79-100) 85 fL (79-100) Mean Corpuscular Hemoglobin 28 pg (25-35) 28 pg (25-35) Mean Corpuscular Hemoglobin Concent 33 g/dL (31-37) 33 g/dL (31-37) Red Cell Distribution Width 14.0 % (11.5-14.5) 14.3 % (11.5-14.5) Platelet Count 249 x10^3/uL (140-400) 212 x10^3/uL (140-400) Neutrophils (%) (Auto) 68 % (31-73) 85 % (31-73) Lymphocytes (%) (Auto) 22 % (24-48) 9 % (24-48) Monocytes (%) (Auto) 8 % (0-9) 5 % (0-9) Eosinophils (%) (Auto) 1 % (0-3) 0 % (0-3) Basophils (%) (Auto) 1 % (0-3) 1 % (0-3) Neutrophils # (Auto) 4.8 x10^3uL (1.8-7.7) 10.5 x10^3uL (1.8-7.7) Lymphocytes # (Auto) 1.5 x10^3/uL (1.0-4.8) 1.2 x10^3/uL (1.0-4.8) Monocytes # (Auto) 0.6 x10^3/uL (0.0-1.1) 0.7 x10^3/uL (0.0-1.1) Eosinophils # (Auto) 0.1 x10^3/uL (0.0-0.7) 0.1 x10^3/uL (0.0-0.7) Basophils # (Auto) 0.1 x10^3/uL (0.0-0.2) 0.1 x10^3/uL (0.0-0.2) Platelet Estimate Adequate (ADEQUATE) Platelet Clumps, EDTA Present Large Platelets Few Sodium Level 145 mmol/L (136-145) 144 mmol/L (136-145) Potassium Level 3.6 mmol/L (3.5-5.1) 3.1 mmol/L (3.5-5.1) Chloride Level 107 mmol/L (98-107) 112 mmol/L (98-107) Carbon Dioxide Level 31 mmol/L (21-32) 24 mmol/L (21-32) Anion Gap 7 (6-14) 8 (6-14) Blood Urea Nitrogen 8 mg/dL (8-26) 8 mg/dL (8-26) Creatinine 1.1 mg/dL (0.7-1.3) 0.7 mg/dL (0.7-1.3) Estimated GFR (Cockcroft-Gault) 81.6 137.4 BUN/Creatinine Ratio 7 (6-20) Glucose Level 109 mg/dL (70-99) 91 mg/dL (70-99) Lactic Acid Level 0.9 mmol/L (0.4-2.0) Calcium Level 8.4 mg/dL (8.5-10.1) 7.4 mg/dL (8.5-10.1) Total Bilirubin 0.4 mg/dL (0.2-1.0) Aspartate Amino Transf (AST/SGOT) 19 U/L (15-37) Alanine Aminotransferase (ALT/SGPT) 18 U/L (16-63) Alkaline Phosphatase 42 U/L (46-116) Troponin I Quantitative < 0.017 ng/mL (0.000-0.055) Total Protein 7.2 g/dL (6.4-8.2) Albumin 4.3 g/dL (3.4-5.0) Albumin/Globulin Ratio 1.5 (1.0-1.7) Ethyl Alcohol Level < 10 mg/dL (0-10) Urine Collection Type U cath Urine Color Elizabeth Urine Clarity Clear Urine pH 6.0 Urine Specific [place] >=1.030 Urine Protein Negative mg/dL (NEG-TRACE) Urine Glucose (UA) Negative mg/dL (NEG) Urine Ketones (Stick) Trace mg/dL (NEG) Urine Blood Negative (NEG) Urine Nitrite Negative (NEG) Urine Bilirubin Small (NEG) Urine Urobilinogen Dipstick 1.0 mg/dL (0.2 mg/dL) Urine Leukocyte Esterase Trace (NEG) Urine RBC 0 /HPF (0-2) Urine WBC 1-4 /HPF (0-4) Urine Squamous Epithelial Cells Occ /LPF Urine Amorphous Sediment Present /HPF Urine Bacteria Few /HPF (0-FEW) Urine Mucus Mod /LPF Urine Opiates Screen Neg (NEG) Urine Methadone Screen Neg (NEG) Urine Barbiturates Neg (NEG) Urine Phencyclidine Screen Neg (NEG) Urine Amphetamine/Methamphetamine Pos (NEG) Urine Benzodiazepines Screen Neg (NEG) Urine Cocaine Screen Neg (NEG) Urine Cannabinoids Screen Pos (NEG) Urine Ethyl Alcohol Neg (NEG) O2 Saturation 99 % (92-99) Arterial Blood pH 7.44 (7.35-7.45) Arterial Blood pCO2 at Patient Temp 36 mmHg (35-46) Arterial Blood pO2 at Patient Temp 374 mmHg (85-108) Arterial Blood HCO3 24 mmol/L (21-28) Arterial Blood Base Excess 0 mmol/L (-3-3) FiO2 60 Test 02/12/17 07:40 O2 Saturation 98 % (92-99) Arterial Blood pH 7.42 (7.35-7.45) Arterial Blood pCO2 at Patient Temp 36 mmHg (35-46) Arterial Blood pO2 at Patient Temp 105 mmHg (85-108) Arterial Blood HCO3 23 mmol/L (21-28) Arterial Blood Base Excess -1 mmol/L (-3-3) FiO2 30 Medications Current Medications Sodium Chloride 1,000 ml @ 1,000 mls/hr 1X ONCE IV Last administered on t 16:21; Start 02/11/17 at 16:15; Stop 02/11/17 at 17:14; Status DC Propofol (Diprivan) 500 mg 1X ONCE IV Last administered on 02/11/17 17:03; Start 02/11/17 at 17:00; Stop 02/11/17 at 17:01; Status DC Propofol 50 ml @ As Directed STK-MED ONCE IV ; Start 02/11/17 at 17:01; Stop 08/18 at 17:02; Status DC Fentanyl Citrate (Fentanyl 2ml Vial) 100 mcg 1X ONCE IV Last administered on 17:28; Start 02/11/17 at 17:30; Stop 02/11/17 at 17:31; Status DC Ketamine HCl 320 mg 1X ONCE IV ; Start 02/11/17 at 17:45; Stop 02/11/17 at 17: 46; Status Cancel Ondansetron HCl (Zofran) 4 mg PRN Q8HRS PRN IV NAUSEA/VOMITING; Start 02/11/17 at 18:15; Stop 02/12/17 at 18:14 Morphine Sulfate 4 mg PRN Q2HR PRN IV PAIN; Start 02/11/17 at 18:15; Stop 02/12 at 18:14 Ketamine HCl 140 mg 1X ONCE IV Last administered on 02/11/17 17:33; Start 08/18 at 18:45; Stop 02/11/17 at 18:46; Status DC Rocuronium [place] (Zemuron) 50 mg STK-MED ONCE .ROUTE ; Start 02/11/17 at 19:09 ; Stop 02/11/17 at 19:10; Status DC Etomidate (Amidate) 20 mg STK-MED ONCE IV ; Start 02/11/17 at 19:09; Stop at 19:10; Status DC Propofol 100 ml @ As Directed STK-MED ONCE IV ; Start 02/11/17 at 19:42; Stop 02/11/17 at 19:43; Status DC Lorazepam (Ativan) 2 mg PRN Q4HRS PRN IV ANXIETY / AGITATION Last administered on 02/12/17 03:36; Start 02/11/17 at 20:15 Sodium Chloride 1,000 ml @ 150 mls/hr Q6H40M IV Last administered on 03:37; Start 02/11/17 at 20:30 Sodium Chloride 1,000 ml @ 1,000 mls/hr 1X ONCE IV Last administered on 20:24; Start 02/11/17 at 20:30; Stop 02/11/17 at 21:29; Status DC Sodium Chloride 1,000 ml @ 150 mls/hr Q6H40M IV ; Start 02/11/17 at 20:30; Status UNV Midazolam HCl 100 ml @ 0 mls/hr CONT PRN IV SEE I/O RECORD Last administered on 02/12/17 04:01; Start 02/11/17 at 20:30 Fentanyl Citrate 30 ml @ 0 mls/hr CONT PRN IV PROTOCOL Last administered on 05:11; Start 02/11/17 at 20:30 Enoxaparin Sodium (Lovenox Per Pharmacy Prophylaxis Dosing) 1 each PRN DAILY PRN MC SEE COMMENTS; Start 02/11/17 at 22:30; Stop 02/12/17 at 08:42; Status DC Enoxaparin Sodium (Lovenox 40mg Syringe) 40 mg Q24H SQ Last administered on 23:29; Start 02/11/17 at 22:30 Propofol 100 ml @ 0 mls/hr 1X ONCE IV Last administered on 02/11/17 19:45; Start 02/11/17 at 23:45; Stop 02/11/17 at 23:46; Status DC Vitals/I & O Vital Sign - Last 24 Hours 02/11/17 02/11/17 02/11/17 02/11/17 15:54 16:11 16:15 16:26 Temp 100.1 100.1 Pulse 93 97 82 Resp 14 B/P (MAP) 137/78 (97) 144/90 (108) 144/84 (104) Pulse Ox 93 100 100 100 O2 Delivery Room Air Ventilator Ventilator Ventilator 02/11/17 02/11/17 02/11/17 02/11/17 16:41 16:56 17:11 17:16 Pulse 91 84 95 78 B/P (MAP) 144/89 (107) 142/88 (106) 137/83 (101) 144/91 (108) Pulse Ox 100 100 100 100 O2 Delivery Ventilator Ventilator Ventilator Ventilator 02/11/17 02/11/17 02/11/17 02/11/17 17:21 17:31 17:36 17:41 Pulse 82 94 80 77 B/P (MAP) 151/97 (115) 129/62 (84) 144/90 (108) 145/93 (110) Pulse Ox 100 100 100 100 O2 Delivery Ventilator Ventilator Ventilator Ventilator 02/11/17 02/11/17 02/11/17 02/11/17 17:46 17:51 18:33 19:25 Pulse 77 62 67 B/P (MAP) 146/99 (115) 147/99 (115) 146/93 (110) Pulse Ox 100 100 100 100 O2 Delivery Ventilator Ventilator Ventilator Ventilator 02/11/17 02/11/17 02/11/17 02/11/17 19:45 20:00 20:30 20:56 Temp 98.5 98.5 Pulse 72 70 Resp 16 16 B/P (MAP) 100/60 (73) 134/60 (84) Pulse Ox 100 100 100 O2 Delivery Ventilator Mechanical Ventilator Ventilator Ventilator 02/11/17 02/11/17 02/11/17 02/11/17 21:00 22:00 22:35 23:00 Pulse 75 72 73 Resp 16 16 16 B/P (MAP) 149/85 (106) 135/71 (92) 138/69 (92) Pulse Ox 100 100 100 100 O2 Delivery Ventilator Ventilator Ventilator Ventilator 02/12/17 02/12/17 02/12/17 02/12/17 00:00 00:00 01:00 01:10 Temp 96.6 96.6 Pulse 82 89 Resp 18 16 B/P (MAP) 113/70 (84) 107/58 (74) Pulse Ox 100 100 100 O2 Delivery Ventilator Mechanical Ventilator Ventilator Ventilator 02/12/17 02/12/17 02/12/17 02/12/17 02:00 03:00 03:30 04:00 Pulse 89 76 Resp 16 16 B/P (MAP) 113/65 (81) 127/82 (97) Pulse Ox 100 100 100 O2 Delivery Ventilator Ventilator Ventilator Mechanical Ventilator 02/12/17 02/12/17 02/12/17 02/12/17 04:00 05:00 05:00 05:11 Temp 97.1 97.1 Pulse 96 97 Resp 16 16 16 B/P (MAP) 138/69 (92) 142/77 (98) Pulse Ox 100 100 100 100 O2 Delivery Ventilator Ventilator Ventilator Ventilator 02/12/17 02/12/17 02/12/17 02/12/17 06:00 07:15 07:35 08:15 Temp 98.4 98.4 Pulse 100 98 86 Resp 16 15 9 B/P (MAP) 139/72 (94) 135/76 (95) 146/78 (100) Pulse Ox 100 100 100 100 O2 Delivery Ventilator Ventilator Ventilator Ventilator 02/12/17 02/12/17 08:15 09:02 Pulse 85 Resp 15 B/P (MAP) 147/79 (101) Pulse Ox 99 O2 Delivery Mechanical Ventilator Ventilator Intake and Output 02/11/17 02/11/17 02/12/17 14:59 22:59 06:59 Intake Total 1000 ml 2461.6 ml Output Total 143 ml 366 ml Balance 857 ml 2095.6 ml CARLOS BETANCOURT MD Feb 12, 2017 09:09
[2017-02-12] MEDS ORDERED: POTASSIUM CHLORIDE 20MEQ 50 ML IV ONE (09:15)
--- NOTE | 2017-02-12 09:43 | PDOC ---
Provider Note Provider Note DICTATED RAJAT GATES MD Feb 12, 2017 09:43
--- NOTE | 2017-02-12 10:09 | CONS ---
DATE OF CONSULTATION: 02/12/2017 PULMONARY CONSULTATION ATTENDING PHYSICIAN: Dr. Huber. REASON FOR CONSULTATION: Respiratory failure, toxic encephalopathy. HISTORY OF PRESENT ILLNESS: The patient is a 27-year-old male who has no other past medical history. He was found down on the side of the road past midnight. EMS was called. His Ana coma scale was 3, was less responsive. As a result, he was intubated in the ER for airway protection by the ER physician. His urine drug screen was positive for marijuana and meth. His chest x-ray is clear post-intubation. His latest ABGs showed a pH of 7.42, pCO2 of 36 and a pO2 105 on 30% FiO2. SEDATION: Versed has been stopped early this morning and he is able to follow some commands, but does not open his eyes fully yet. PAST MEDICAL HISTORY: Essentially unremarkable. PAST SURGICAL HISTORY: Unremarkable. ALLERGIES: None. MEDICATIONS: Reviewed as listed in the MRAD. SOCIAL HISTORY: History of tobacco use and urine drug screen positive for marijuana and meth. PHYSICAL EXAMINATION: VITAL SIGNS: Blood pressure is stable, pulse ox 99%. NECK: Supple. LUNGS: Clear. CARDIOVASCULAR: Regular rate and rhythm. ABDOMEN: Soft. EXTREMITIES: With no pitting edema. LABORATORY DATA: Reviewed. Chemistry shows a BUN of 8, creatinine 0.7. White cell count 12.4, hemoglobin 13.1, platelets of 212. IMPRESSION: 1. Acute respiratory failure secondary to acute toxic encephalopathy. 2. Acute toxic encephalopathy related to marijuana and meth abuse. CT head and cervical spine was negative. RECOMMENDATIONS: 1. Discussed with the patient's family. We have stopped sedation and will assess for his mental status and his ability to protect his airway. 2. Once awake, we will proceed with CPAP trial and if he fights a ventilator, we may just do extubation. 3. Further recommendations to follow. cct 35 min RAJAT GATES MD DR: ALESSIO/jossie JOB#: [id number] / [id number] STEPHON
[2017-02-12] MEDS: POTASSIUM CHLORIDE 10MEQ 100 ML IV SCH ×2 (10:45→13:00)
[2017-02-12] MEDS: ENOXAPARIN 40 MG/0.4 ML SYRINGE. SQ SCH (22:58)
[2017-02-13 04:23] VITALS: BP 112/57
[2017-02-13 07:00] VITALS: BP 118/72
[2017-02-13] MEDS: IV NORMAL SALINE 1000ML BAG 1,000 ML IV SCH (08:11)
[2017-02-13 10:44] VITALS: BP 105/57
[2017-02-13] MEDS ORDERED: POTASSIUM CHLORIDE 20 MEQ TABLET.ER. PO ONE (11:00)
--- NOTE | 2017-02-13 11:01 | PDOC ---
PULMONARY PROGRESS NOTES Subjective extubated 02/12 doing well on RA Vitals Vital Signs Date Time Temp Pulse Resp B/P (MAP) Pulse Ox O2 Delivery O2 Flow Rate FiO2 02/13/17 10:44 98.8 91 18 105/57 (73) Room Air 98.8 02/12/17 14:04 97 02/12/17 12:13 2.0 General: Alert Lungs: Clear Cardiovascular: S1 Abdomen: Soft Neuro Exam: Alert Extremities: No Edema Labs Laboratory Tests Test 02/11/17 16:10 02/11/17 16:20 02/11/17 20:51 02/11/17 21:17 White Blood Count 7.1 x10^3/uL (4.0-11.0) Red Blood Count 5.07 x10^6/uL (4.30-5.70) Hemoglobin 14.3 g/dL (13.0-17.5) Hematocrit 43.2 % (39.0-53.0) Mean Corpuscular Volume 85 fL (79-100) Mean Corpuscular Hemoglobin 28 pg (25-35) Mean Corpuscular Hemoglobin Concent 33 g/dL (31-37) Red Cell Distribution Width 14.0 % (11.5-14.5) Platelet Count 249 x10^3/uL (140-400) Neutrophils (%) (Auto) 68 % (31-73) Lymphocytes (%) (Auto) 22 % (24-48) Monocytes (%) (Auto) 8 % (0-9) Eosinophils (%) (Auto) 1 % (0-3) Basophils (%) (Auto) 1 % (0-3) Neutrophils # (Auto) 4.8 x10^3uL (1.8-7.7) Lymphocytes # (Auto) 1.5 x10^3/uL (1.0-4.8) Monocytes # (Auto) 0.6 x10^3/uL (0.0-1.1) Eosinophils # (Auto) 0.1 x10^3/uL (0.0-0.7) Basophils # (Auto) 0.1 x10^3/uL (0.0-0.2) Platelet Estimate Adequate (ADEQUATE) Platelet Clumps, EDTA Present Large Platelets Few Sodium Level 145 mmol/L (136-145) Potassium Level 3.6 mmol/L (3.5-5.1) Chloride Level 107 mmol/L (98-107) Carbon Dioxide Level 31 mmol/L (21-32) Anion Gap 7 (6-14) Blood Urea Nitrogen 8 mg/dL (8-26) Creatinine 1.1 mg/dL (0.7-1.3) Estimated GFR (Cockcroft-Gault) 81.6 BUN/Creatinine Ratio 7 (6-20) Glucose Level 109 mg/dL (70-99) Lactic Acid Level 0.9 mmol/L (0.4-2.0) Calcium Level 8.4 mg/dL (8.5-10.1) Total Bilirubin 0.4 mg/dL (0.2-1.0) Aspartate Amino Transf (AST/SGOT) 19 U/L (15-37) Alanine Aminotransferase (ALT/SGPT) 18 U/L (16-63) Alkaline Phosphatase 42 U/L (46-116) Troponin I Quantitative < 0.017 ng/mL (0.000-0.055) Total Protein 7.2 g/dL (6.4-8.2) Albumin 4.3 g/dL (3.4-5.0) Albumin/Globulin Ratio 1.5 (1.0-1.7) Ethyl Alcohol Level < 10 mg/dL (0-10) Urine Collection Type U cath Urine Color Elizabeth Urine Clarity Clear Urine pH 6.0 Urine Specific [place] >=1.030 Urine Protein Negative mg/dL (NEG-TRACE) Urine Glucose (UA) Negative mg/dL (NEG) Urine Ketones (Stick) Trace mg/dL (NEG) Urine Blood Negative (NEG) Urine Nitrite Negative (NEG) Urine Bilirubin Small (NEG) Urine Urobilinogen Dipstick 1.0 mg/dL (0.2 mg/dL) Urine Leukocyte Esterase Trace (NEG) Urine RBC 0 /HPF (0-2) Urine WBC 1-4 /HPF (0-4) Urine Squamous Epithelial Cells Occ /LPF Urine Amorphous Sediment Present /HPF Urine Bacteria Few /HPF (0-FEW) Urine Mucus Mod /LPF Urine Opiates Screen Neg (NEG) Urine Methadone Screen Neg (NEG) Urine Barbiturates Neg (NEG) Urine Phencyclidine Screen Neg (NEG) Urine Amphetamine/Methamphetamine Pos (NEG) Urine Benzodiazepines Screen Neg (NEG) Urine Cocaine Screen Neg (NEG) Urine Cannabinoids Screen Pos (NEG) Urine Ethyl Alcohol Neg (NEG) O2 Saturation 99 % (92-99) Arterial Blood pH 7.44 (7.35-7.45) Arterial Blood pCO2 at Patient Temp 36 mmHg (35-46) Arterial Blood pO2 at Patient Temp 374 mmHg (85-108) Arterial Blood HCO3 24 mmol/L (21-28) Arterial Blood Base Excess 0 mmol/L (-3-3) FiO2 60 Nasal Screen MRSA (PCR) Negative (Negative) Test 02/12/17 05:45 02/12/17 07:40 White Blood Count 12.4 x10^3/uL (4.0-11.0) Red Blood Count 4.65 x10^6/uL (4.30-5.70) Hemoglobin 13.1 g/dL (13.0-17.5) Hematocrit 39.7 % (39.0-53.0) Mean Corpuscular Volume 85 fL (79-100) Mean Corpuscular Hemoglobin 28 pg (25-35) Mean Corpuscular Hemoglobin Concent 33 g/dL (31-37) Red Cell Distribution Width 14.3 % (11.5-14.5) Platelet Count 212 x10^3/uL (140-400) Neutrophils (%) (Auto) 85 % (31-73) Lymphocytes (%) (Auto) 9 % (24-48) Monocytes (%) (Auto) 5 % (0-9) Eosinophils (%) (Auto) 0 % (0-3) Basophils (%) (Auto) 1 % (0-3) Neutrophils # (Auto) 10.5 x10^3uL (1.8-7.7) Lymphocytes # (Auto) 1.2 x10^3/uL (1.0-4.8) Monocytes # (Auto) 0.7 x10^3/uL (0.0-1.1) Eosinophils # (Auto) 0.1 x10^3/uL (0.0-0.7) Basophils # (Auto) 0.1 x10^3/uL (0.0-0.2) Sodium Level 144 mmol/L (136-145) Potassium Level 3.1 mmol/L (3.5-5.1) Chloride Level 112 mmol/L (98-107) Carbon Dioxide Level 24 mmol/L (21-32) Anion Gap 8 (6-14) Blood Urea Nitrogen 8 mg/dL (8-26) Creatinine 0.7 mg/dL (0.7-1.3) Estimated GFR (Cockcroft-Gault) 137.4 Glucose Level 91 mg/dL (70-99) Calcium Level 7.4 mg/dL (8.5-10.1) O2 Saturation 98 % (92-99) Arterial Blood pH 7.42 (7.35-7.45) Arterial Blood pCO2 at Patient Temp 36 mmHg (35-46) Arterial Blood pO2 at Patient Temp 105 mmHg (85-108) Arterial Blood HCO3 23 mmol/L (21-28) Arterial Blood Base Excess -1 mmol/L (-3-3) FiO2 30 Impression . 1. Acute respiratory failure secondary to acute toxic encephalopathy. 2. Acute toxic encephalopathy related to marijuana and meth abuse. CT head and cervical spine was negative. Plan . 1. ON RA . DOING WELL 2. WILL SIGN OFF OK WITH HOME RAJAT GATES MD Feb 13, 2017 11:01
--- NOTE | 2017-02-13 16:24 | PDOC3 ---
Discharge Summary Visit Information Date of Admission: Feb 11, 2017 Date of Discharge: Feb 13, 2017 Admitting Diagnosis: obstunded Final Diagnosis 1 Acute toxic encephalopathy, possible K2 2. meth and THC abuse 3. depression, denies suicide ideation Problems Medical Problems: (1) Methamphetamine abuse Status: Acute (2) Unresponsiveness Status: Acute Brief Hospital Course Allergies Allergies Coded Allergies Type Severity Reaction Last Updated Verified No Known Drug Allergies 01/07/16 No Vital Signs Vital Signs Date Time Temp Pulse Resp B/P (MAP) Pulse Ox O2 Delivery O2 Flow Rate FiO2 02/13/17 10:44 98.8 91 18 105/57 (73) Room Air 98.8 02/12/17 14:04 97 02/12/17 12:13 2.0 Lab Results Laboratory Tests Test 02/11/17 20:51 02/11/17 21:17 02/12/17 05:45 02/12/17 07:40 O2 Saturation 99 % (92-99) 98 % (92-99) Arterial Blood pH 7.44 (7.35-7.45) 7.42 (7.35-7.45) Arterial Blood pCO2 at Patient Temp 36 mmHg (35-46) 36 mmHg (35-46) Arterial Blood pO2 at Patient Temp 374 mmHg (85-108) 105 mmHg (85-108) Arterial Blood HCO3 24 mmol/L (21-28) 23 mmol/L (21-28) Arterial Blood Base Excess 0 mmol/L (-3-3) -1 mmol/L (-3-3) FiO2 60 30 Nasal Screen MRSA (PCR) Negative (Negative) White Blood Count 12.4 x10^3/uL (4.0-11.0) Red Blood Count 4.65 x10^6/uL (4.30-5.70) Hemoglobin 13.1 g/dL (13.0-17.5) Hematocrit 39.7 % (39.0-53.0) Mean Corpuscular Volume 85 fL (79-100) Mean Corpuscular Hemoglobin 28 pg (25-35) Mean Corpuscular Hemoglobin Concent 33 g/dL (31-37) Red Cell Distribution Width 14.3 % (11.5-14.5) Platelet Count 212 x10^3/uL (140-400) Neutrophils (%) (Auto) 85 % (31-73) Lymphocytes (%) (Auto) 9 % (24-48) Monocytes (%) (Auto) 5 % (0-9) Eosinophils (%) (Auto) 0 % (0-3) Basophils (%) (Auto) 1 % (0-3) Neutrophils # (Auto) 10.5 x10^3uL (1.8-7.7) Lymphocytes # (Auto) 1.2 x10^3/uL (1.0-4.8) Monocytes # (Auto) 0.7 x10^3/uL (0.0-1.1) Eosinophils # (Auto) 0.1 x10^3/uL (0.0-0.7) Basophils # (Auto) 0.1 x10^3/uL (0.0-0.2) Sodium Level 144 mmol/L (136-145) Potassium Level 3.1 mmol/L (3.5-5.1) Chloride Level 112 mmol/L (98-107) Carbon Dioxide Level 24 mmol/L (21-32) Anion Gap 8 (6-14) Blood Urea Nitrogen 8 mg/dL (8-26) Creatinine 0.7 mg/dL (0.7-1.3) Estimated GFR (Cockcroft-Gault) 137.4 Glucose Level 91 mg/dL (70-99) Calcium Level 7.4 mg/dL (8.5-10.1) Brief Hospital Course Mr. Farah is a 27 [address] with GCS 3, intubated in ER to protect. Admit to ICU, sedated overnight, extubated, PAT team eval for depression, substance abuse. F/u as outpatient arranged. Discharge Information Condition at Discharge: Improved Follow Up: Weeks Disposition/Orders: D/C to Home No Active Prescriptions or Reported Meds ALEXANDRIA MARMOLEJO MD Feb 13, 2017 16:24
[2017-02-14 15:15] LABS: POTASSIUM ISTAT 3.5 mmol/L (3.5-5.0)
== END 2017-02-13 12:32 | disposition home or self-care (01) | DRG 917 ==
LOC: ER 15:54 → 1 WEST ICU 17:55 → 5 SOUTH 02-12 16:41
PROVIDERS: ADMIT Internal Medicine; ATTEND Internal Medicine
PROC: 5A1935Z Respiratory Ventilation, Less than 24 Consecutive Hours (ICD-10-PCS; principal; 2017-02-11)
PROC: 0BH17EZ Insertion of Endotracheal Airway into Trachea, Via Natural or Artificial Opening (ICD-10-PCS; 2017-02-11)
DX: T43.621A Poisoning by amphetamines, accidental (unintentional), initial encounter (principal); J96.00 Acute respiratory failure, unspecified whether with hypoxia or hypercapnia; G92 Toxic encephalopathy; R45.851 Suicidal ideations; F19.10 Other psychoactive substance abuse, uncomplicated; F15.10 Other stimulant abuse, uncomplicated; F32.9 Major depressive disorder, single episode, unspecified; H55.09 Other forms of nystagmus; F12.10 Cannabis abuse, uncomplicated
CPT/HCPCS: 36415; 36600; 51702; 70450; 71010; 72125; 80047; 80048; 80053; 81001; 82805; 83605; 84484; 85007; 85027; 87040; 87086; 87641; 93005; 94002; 94003; 96361; 96374; 96375; G0480; G0481; J1650; J2060; J2250; J2704; J3010; J3480; J3490; J7030; 99291-25

== ENCOUNTER 2017-12-04 13:29 | Emergency (ER) | payer SELFPAY, BC ==
[2017-12-04] MEDS: DIPHTH,PERTUSS(ACELL),TET TOX 0.5 ML DISP.SYRIN. VAX IM (15:13)
== END 2017-12-04 15:18 | disposition home or self-care (01) ==
LOC: ER 13:29
DX: S51.811A Laceration without foreign body of right forearm, initial encounter (principal); S51.812A Laceration without foreign body of left forearm, initial encounter; S01.412A Laceration without foreign body of left cheek and temporomandibular area, initial encounter; S01.411A Laceration without foreign body of right cheek and temporomandibular area, initial encounter; F17.210 Nicotine dependence, cigarettes, uncomplicated; F12.10 Cannabis abuse, uncomplicated; X99.8XXA Assault by other sharp object, initial encounter; Y93.01 Activity, walking, marching and hiking; Y92.89 Other specified places as the place of occurrence of the external cause; Y99.8 Other external cause status
CPT/HCPCS: 90471; 90715; 99283-25